=== PATIENT | male | born 1980 | race Caucasian/White ===

== ENCOUNTER 2017-01-10 13:19 | Emergency (ER) | payer MEDICAID, OTHER ==
[2017-01-10 13:21] VITALS: BMI 22.7
[2017-01-10 13:31] VITALS: TEMP 98.4
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
--- NOTE | 2017-01-10 14:55 | RAD ---
HISTORY: Chest pain COMPARISON: No prior. TECHNIQUE: Chest PA and lateral FINDINGS: LUNGS: The lungs are well inflated and clear. PLEURA: No significant pleural effusion identified. No pneumothorax apparent. CARDIOVASCULAR: Normal. OSSEOUS STRUCTURES: No significant abnormalities. VISUALIZED UPPER ABDOMEN: Normal. OTHER FINDINGS: None. IMPRESSION: No active pulmonary disease.
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
[2017-01-10 15:25] VITALS: BP 116/72; PULSE 80; RESP 18; O2SAT 100
== END 2017-01-10 15:19 | disposition home or self-care (01) ==
LOC: ED 13:19
DX: S80.01XA Contusion of right knee, initial encounter (principal); S60.410A Abrasion of right index finger, initial encounter; W19.XXXA Unspecified fall, initial encounter; R07.81 Pleurodynia

== ENCOUNTER 2017-02-14 22:10 | Emergency (ER) | payer MEDICAID ==
[2017-02-14 22:11] VITALS: BMI 22.7
[2017-02-14 22:54] VITALS: BP 102/64; PULSE 63; RESP 16; TEMP 99; O2SAT 97
== END 2017-02-15 00:10 | disposition left against medical advice (07) ==
LOC: ED 22:10
DX: Z02.89 Encounter for other administrative examinations (principal); M79.1 Myalgia